=== PATIENT | female | born 1995 | race African-American/Black ===

== ENCOUNTER 2016-12-16 14:45 | Inpatient (IN) ==
[2016-12-16 15:16] LABS: URINE MICRO REVIEW NEEDED? NO; URINE SOURCE CLEAN CATCH
[2016-12-16 15:34] LABS: BILIRUBIN URINE NEGATIVE (NEGATIVE); BLOOD URINE SMALL (NEGATIVE); COLOR YELLOW; GLUCOSE URINE NEGATIVE (NEGATIVE); LEUKOCYTES URINE TRACE (NEGATIVE); NITRITE URINE NEGATIVE (NEGATIVE); PROTEIN URINE NEGATIVE (NEGATIVE); SP GRAVITY URINE 1.007; TURBIDITY URINE CLEAR (CLEAR); UROBILINOGEN URINE NORMAL (NORMAL)
[2016-12-16 15:35] LABS: UR EPITHELIAL CELLS <10 /HPF (<10); URINE BACTERIA NEGATIVE /HPF; URINE CULTURE NEEDED? YES; URINE RBC <10 /HPF (<10); URINE WBC <10 /HPF (<10)
[2016-12-16 15:36] LABS: BASO% 0.1 % (0.0-0.8); EOS# 0.06 X1000 (0.0-0.7); EOS% 0.8 % (0.0-10.0); HEMATOCRIT 33.3 % (37.0-47.0); HEMOGLOBIN 10.6 g/dL (12.0-16.0); LYMPH# 1.13 X1000 (1.2-3.4); LYMPH% 14.7 % (20.5-51.1); MANUAL DIFF NEEDED? NO; MCH 22.9 PG (27-31); MCHC 31.8 g/dL (33-37); MCV 72.1 FL (81-99); MONO# 0.79 X1000 (0.11-0.59); MONO% 10.3 % (1.7-9.3); MPV 9.7 FL (7.4-10.4); NEUT% 74.1 % (42.2-75.2); PLT 281 X1000 (130-400); RBC 4.62 XMIL (4.2-5.4)
[2016-12-16 15:52] LABS: AGAP 12; ALBUMIN 4.1 g/dL (3.5-5.0); ALKALINE PHOSPHATASE 52 U/L (32-104); AMYLASE 66 U/L (20-200); BUN 4 mg/dL (8-22); CALCIUM 9.4 mg/dL (8.8-10.2); CHLORIDE 101 mmol/L (98-107); COSMO 273; GOT 13 U/L (10-30); GPT 11 U/L (10-36); LIPASE 36 U/L (13-60); POTASSIUM 3.5 mmol/L (3.5-5.1); SODIUM 139 mmol/L (136-145); TCO2 26 mmol/L (25-35); TOTAL BILIRUBIN 0.38 mg/dL (0.20-1.00); TOTAL PROTEIN 7.5 g/dL (6.3-8.3)
[2016-12-16] MEDS ORDERED: ZOSYN 3.375 GM in NS 50 ML IV ONE (19:52)
[2016-12-16] MEDS ORDERED: DILAUDID IV ONE (19:53)
[2016-12-16] MEDS ORDERED: DILAUDID ONE (20:02)
[2016-12-16] MEDS ORDERED: ZOFRAN IV ONE (22:53)
[2016-12-17] MEDS ORDERED: DILAUDID IV ONE (00:04)
[2016-12-17] MEDS ORDERED: SODIUM CHLORIDE 0.9% INJ ONE (00:05)
[2016-12-17] MEDS ORDERED: PROTONIX IV ONE (00:05)
[2016-12-17] MEDS ORDERED: DILAUDID ONE (01:00)
[2016-12-17] MEDS ORDERED: NS 500 ML IV ONE (01:27)
[2016-12-17] MEDS: NS 1,000 ML IV SCH ×2 (02:33→11:06)
[2016-12-17] MEDS: ZOSYN 3.375 GM in NS 50 ML IV SCH ×4 (03:44→23:29)
[2016-12-17 06:59] LABS: BASO% 0.3 % (0.0-0.8); EOS# 0.09 X1000 (0.0-0.7); EOS% 1.5 % (0.0-10.0); HEMATOCRIT 29.1 % (37.0-47.0); HEMOGLOBIN 9.2 g/dL (12.0-16.0); LYMPH# 1.48 X1000 (1.2-3.4); LYMPH% 24.1 % (20.5-51.1); MANUAL DIFF NEEDED? YES; MCHC 31.6 g/dL (33-37); MCV 72.8 FL (81-99); MONO% 16.3 % (1.7-9.3); MPV 9.4 FL (7.4-10.4); NEUT% 57.8 % (42.2-75.2); PLT 233 X1000 (130-400)
[2016-12-17 07:20] LABS: LYMPHS 24 % (21-51); MONO 16 % (1-9)
[2016-12-17 07:34] LABS: AGAP 14; ALBUMIN 3.2 g/dL (3.5-5.0); ALKALINE PHOSPHATASE 42 U/L (32-104); BUN 4 mg/dL (8-22); CALCIUM 7.7 mg/dL (8.8-10.2); CHLORIDE 103 mmol/L (98-107); COSMO 275; GOT 10 U/L (10-30); GPT 7 U/L (10-36); IRON SATURATION 6 %; POTASSIUM 3.4 mmol/L (3.5-5.1); SODIUM 140 mmol/L (136-145); TCO2 23 mmol/L (25-35); TIBC 286 ug/dL; TOTAL BILIRUBIN 0.38 mg/dL (0.20-1.00); TOTAL IRON 18 ug/dL (49-151); TOTAL PROTEIN 6.2 g/dL (6.3-8.3); UNBOUND IRON 268 ug/dL (112-346)
[2016-12-17 07:48] LABS: FERRITIN 34 ng/mL (13-150)
[2016-12-17] MEDS: ICAR-C PO SCH ×2 (14:41→23:30)
[2016-12-17] MEDS: ZOFRAN IV PRN (14:42)
[2016-12-17] MEDS: DILAUDID IV PRN ×2 (14:42→23:30)
[2016-12-18] MEDS: DILAUDID IV PRN ×3 (04:36→16:00)
[2016-12-18] MEDS: ZOSYN 3.375 GM in NS 50 ML IV SCH ×4 (04:36→21:19)
[2016-12-18] MEDS: ICAR-C PO SCH ×2 (10:16→21:18)
[2016-12-18] MEDS: TYLENOL PO PRN (21:18)
[2016-12-19] MEDS: ZOSYN 3.375 GM in NS 50 ML IV SCH ×4 (03:15→22:24)
[2016-12-19] MEDS: ICAR-C PO SCH ×2 (08:31→22:25)
[2016-12-19] MEDS: ZOFRAN IV PRN (13:08)
[2016-12-20] MEDS: ZOSYN 3.375 GM in NS 50 ML IV SCH ×4 (04:04→23:12)
[2016-12-20] MEDS: ICAR-C PO SCH ×2 (09:42→20:05)
[2016-12-20] MEDS: ZOFRAN IV PRN ×2 (09:46→18:30)
[2016-12-20] MEDS: DILAUDID IV PRN ×3 (09:47→20:05)
[2016-12-20] MEDS: NON-FORMULARY BULK MED PO SCH (18:02)
[2016-12-21] MEDS: ZOFRAN IV PRN (04:06)
[2016-12-21] MEDS: DILAUDID IV PRN ×3 (04:06→21:07)
[2016-12-21] MEDS: ZOSYN 3.375 GM in NS 50 ML IV SCH ×5 (04:07→21:24)
[2016-12-21] MEDS: NON-FORMULARY BULK MED PO SCH ×2 (04:07→18:42)
[2016-12-21] MEDS ORDERED: DIPRIVAN 1% ONE ×2 (08:17→08:45)
[2016-12-21] MEDS ORDERED: XYLOCAINE-MPF 2% ONE (08:18)
[2016-12-21] MEDS ORDERED: VERSED ONE (08:18)
[2016-12-21] MEDS ORDERED: DILAUDID ONE (09:19)
[2016-12-21] MEDS: ICAR-C PO SCH ×2 (14:07→20:52)
[2016-12-21] MEDS: BENTYL PO SCH ×2 (14:07→16:51)
[2016-12-22] MEDS: NON-FORMULARY BULK MED PO SCH ×2 (02:24→17:21)
[2016-12-22] MEDS: ZOSYN 3.375 GM in NS 50 ML IV SCH ×3 (05:48→16:00)
[2016-12-22] MEDS: BENTYL PO SCH ×3 (06:39→16:00)
[2016-12-22] MEDS: ICAR-C PO SCH (09:30)
[2016-12-22 11:11] LABS: BASO% 0.9 % (0.0-0.8); EOS% 6.4 % (0.0-10.0); HEMATOCRIT 34.9 % (37.0-47.0); HEMOGLOBIN 10.8 g/dL (12.0-16.0); LYMPH# 1.67 X1000 (1.2-3.4); LYMPH% 35.8 % (20.5-51.1); MANUAL DIFF NEEDED? NO; MCH 22.6 PG (27-31); MCHC 30.9 g/dL (33-37); MONO# 0.29 X1000 (0.11-0.59); MONO% 6.2 % (1.7-9.3); MPV 8.9 FL (7.4-10.4); NEUT% 50.7 % (42.2-75.2); PLT 416 X1000 (130-400); RBC 4.78 XMIL (4.2-5.4)
[2016-12-22 11:20] LABS: AGAP 12; ALBUMIN 3.9 g/dL (3.5-5.0); ALKALINE PHOSPHATASE 50 U/L (32-104); BUN 3 mg/dL (8-22); CALCIUM 9.2 mg/dL (8.8-10.2); CHLORIDE 103 mmol/L (98-107); COSMO 275; GOT 11 U/L (10-30); GPT 8 U/L (10-36); SODIUM 140 mmol/L (136-145); TCO2 25 mmol/L (25-35); TOTAL BILIRUBIN 0.16 mg/dL (0.20-1.00); TOTAL PROTEIN 7.2 g/dL (6.3-8.3)
[2016-12-22] MEDS: DILAUDID IV PRN ×2 (16:04→20:48)
[2016-12-23] MEDS: DILAUDID IV PRN ×5 (00:01→22:05)
[2016-12-23] MEDS: NON-FORMULARY BULK MED PO SCH ×2 (06:04→17:33)
[2016-12-23] MEDS: ZOSYN 3.375 GM in NS 50 ML IV SCH ×6 (06:06→22:05)
[2016-12-23] MEDS: BENTYL PO SCH ×3 (06:06→16:38)
[2016-12-23] MEDS: ICAR-C PO SCH ×3 (09:26→22:06)
[2016-12-23] MEDS: TYLENOL PO PRN (19:42)
[2016-12-23] MEDS: ZOFRAN IV PRN (22:06)
[2016-12-24] MEDS: DILAUDID IV PRN ×4 (01:17→11:03)
[2016-12-24] MEDS: ZOSYN 3.375 GM in NS 50 ML IV SCH ×2 (04:00→09:32)
[2016-12-24] MEDS: NON-FORMULARY BULK MED PO SCH (04:16)
[2016-12-24] MEDS: BENTYL PO SCH ×2 (06:51→11:05)
[2016-12-24 08:15] VITALS: BP 104/58
[2016-12-24] MEDS: ICAR-C PO SCH (09:33)
== END 2016-12-24 11:42 | disposition home or self-care (01) ==
LOC: ED 14:45 → 3N 14:45 → OBSVTOIN 14:46 → SUATTDRO 12-17 00:31
PROVIDERS: ATTEND Emergency Medicine